=== PATIENT | female | born 1990 | race Caucasian/White ===

== ENCOUNTER 2024-05-07 15:18 | Emergency (ER) | payer MEDICAID, OTHER ==
[~2024-05-07] VITALS: Ht 167.6 cm; Wt 65.9 kg
[2024-05-07 15:45] VITALS: BP 111/67; PULSE 110; RESP 20; TEMP 100; O2SAT 100
[2024-05-07 16:04] VITALS: O2SAT 100
[2024-05-07 16:43] LABS: BASOPHILS % (AUTO) 0.8 % (0.0-2.0); EOSINOPHILS # (AUTO) 0.1 K/uL (0-0.4); EOSINOPHILS % (AUTO) 1.5 % (0.0-4.0); HEMATOCRIT 22.8 % (36-48); LYMPHOCYTES # (AUTO) 0.5 K/uL (2.5-16.5); LYMPHOCYTES % (AUTO) 9.5 % (20.5-51.1); MEAN CORPUSCULAR HEMOGLOBIN 23 pg (27-31); MEAN CORPUSCULAR HGB CONC 30 g/dL (33-37); MEAN CORPUSCULAR VOLUME 74.4 fL (80-94); MONOCYTES # (AUTO) 0.5 K/uL (0.8-1.0); MONOCYTES % (AUTO) 10.1 % (1.7-9.3); NEUTROPHILS % (AUTO) 78.1 % (42.2-75.2); PLATELET COUNT (AUTO) 227 K/uL (140-450); RED BLOOD CELL COUNT(AUTO) 3.06 MIL/uL (4.20-5.40); RED CELL DISTRIBUTION WIDTH 20.4 % (11.6-13.7); WHITE BLOOD COUNT (AUTO) 5.1 K/uL (4.8-10.8)
[2024-05-07 17:03] LABS: ANION GAP 10.5 (8-16); CALCIUM 8.6 mg/dL (8.5-10.1); CARBON DIOXIDE 26.1 mmol/L (21-32); CREATININE 0.6 mg/dL (0.6-1.3); POTASSIUM 3.6 mmol/L (3.5-5.1)
[2024-05-07 17:07] LABS: INR 2.71 (0.8-1.2); PARTIAL THROMBOPLASTIN TIME 40.1 secs (22-35.6); PROTHROMBIN TIME 27.1 secs (10.8-13.4)
[2024-05-07 17:36] LABS: HEMOGLOBIN 6.9 g/dL (12.0-16.0)
[2024-05-07 21:33] VITALS: BP 112/70; PULSE 72; RESP 16; TEMP 98; O2SAT 99
== END 2024-05-07 21:33 | disposition home or self-care (01) ==
LOC: MED 15:18
DX: N93.8 Other specified abnormal uterine and vaginal bleeding (principal); D25.9 Leiomyoma of uterus, unspecified; D64.9 Anemia, unspecified; Z79.01 Long term (current) use of anticoagulants
CPT/HCPCS: 36415; 36430; 76856; 80048; 81025; 85025; 85610; 85730; 86886; 86900; 86901; 86920; 93005; 93976; 99291; P9016; Q0092